=== PATIENT | male | born 1990 | race Two or more races ===

== ENCOUNTER 2023-12-29 16:15 | Emergency (ER) | payer BC ==
[~2023-12-29] VITALS: Ht 172.7 cm; Wt 90.7 kg
[2023-12-29] MEDS ORDERED: KETOROLAC TROMETHAMINE 30 MG VIAL IM STA (19:43)
[2023-12-29] MEDS ORDERED: KETOROLAC TROMETHAMINE 30 MG VIAL ONE (19:50)
[2023-12-29] MEDS ORDERED: KETO10TA2 PO (22:06)
== END 2023-12-29 22:32 | disposition home or self-care (01) ==
LOC: ER 16:16
DX: S49.82XA Other specified injuries of left shoulder and upper arm, initial encounter (principal); W18.39XA Other fall on same level, initial encounter; Y93.89 Activity, other specified; Y92.89 Other specified places as the place of occurrence of the external cause